=== PATIENT | male | born 2000 | race Caucasian/White ===

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

== ENCOUNTER 2022-06-19 12:04 | Emergency (ER) | payer OTHER ==
[~2022-06-19] VITALS: Ht 172.7 cm; Wt 99.8 kg
== END 2022-06-19 15:13 | disposition home or self-care (01) ==
LOC: ED 12:04
DX: R31.0 Gross hematuria (principal); J45.909 Unspecified asthma, uncomplicated
CPT/HCPCS: 74178; 80053; 81001; 85002; 85025; 85610; 85730; 99284-25; Q9967

== ENCOUNTER 2025-04-09 17:01 | Emergency (ER) | payer OTHER ==
[~2025-04-09] VITALS: Ht 172.7 cm; Wt 121.0 kg
[2025-04-09] MEDS ORDERED: HYDROCODON-ACE1 EA10 PO (18:28)
[2025-04-09 18:31] VITALS: BP 121/67
== END 2025-04-09 18:30 | disposition home or self-care (01) ==
LOC: ED 17:01
DX: S52.124A Nondisplaced fracture of head of right radius, initial encounter for closed fracture (principal); S63.501A Unspecified sprain of right wrist, initial encounter; V00.131A Fall from skateboard, initial encounter; Y93.51 Activity, roller skating (inline) and skateboarding; J45.909 Unspecified asthma, uncomplicated
CPT/HCPCS: 73080; 73110; 99283

== ENCOUNTER 2025-04-20 14:53 | Inpatient (IN) | payer OTHER ==
[~2025-04-20] VITALS: Ht 172.7 cm; Wt 120.9 kg
[~2025-04-20 14:53] MED LIST changes: +HYDROCODON-ACE1 EA10 PO
--- OUTSIDE RECORDS SUMMARY | 2025-04-20 15:00 | XMS ---
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 E.D. VISIT COUNT (12 MO.) 2 [facility] TOTAL 2 NOTE: Visits indicate total known visits. ED/UCC VISIT TRACKING (12 MO.) 04/20/2025 14:53 [facility] TYPE: Emergency COMPLAINT: - LT LEG INJURY 04/09/2025 17:02 [facility] TYPE: Emergency COMPLAINT: - RT WRIST/ELBOW INJURY DIAGNOSES: - Activity, roller skating (inline) and skateboarding - Fall from skateboard, initial encounter - Nondisplaced fracture of head of right radius, initial encounter for closed fracture - Pain in right wrist - Unspecified asthma, uncomplicated - Unspecified sprain of right wrist, initial encounter INPATIENT VISIT TRACKING (12 MO.) No inpatient visits to display in this time frame [email or web address]
[2025-04-20] MEDS ORDERED: HYDROmorphone HCL 1 MG/ML SYR IV ONE ×3 (15:15→17:15)
[2025-04-20] MEDS ORDERED: TRANEXAMIC ACID IN NACL,ISO-OS 1,000 MG/100 ML PIGGYBACK IV ONE ×2 (15:15→15:30)
[2025-04-20 15:16] LABS: BASOPHILS 0.4 % (0.2-1.2); EOSINOPHILS 4.4 % (0.8-7.0); LYMPHOCYTES 35.8 % (21.8-53.1); MCH 28.3 PG (25.7-32.2); MCHC 32.6 g/dL (32.3-36.5); MCV 86.9 fL (79.0-92.2); MONOCYTES 6.1 % (5.3-12.2); NEUTROPHILS 53.1 % (34.0-67.9); RBC 5.05 M/uL (4.63-6.08)
[2025-04-20] MEDS ORDERED: SODIUM CHLORIDE 0.9% 1,000 ML IV ONE (15:30)
[2025-04-20 15:36] LABS: ALCOHOL, MEDICAL <3 ng/dL (<3); ALT (SGPT) 30 U/L (14-59); AST (SGOT) 14 U/L (15-37); GLOMERULAR FILTRATION RATE,EST 126 mL/min (>60); PROTEIN, TOTAL 7.9 g/dL (6.4-8.2); UREA NITROGEN 12 mg/dL (7-18)
[2025-04-20 15:57] LABS: ABO O; ANTIBODY SCREEN NEGATIVE; RH POSITIVE
[2025-04-20] MEDS ORDERED: LIDOCAINE/RACEPINEP/TETRACAINE 3 ML SYR TOP ONE (16:45)
[2025-04-20] MEDS ORDERED: CEFAZOLIN SODIUM 2 GM/20 ML SYR IV ONE ×2 (17:30)
[2025-04-20 18:20] LABS: AMPHETAMINES, URINE NEGATIVE (NEGATIVE); BARBITURATES, URINE NEGATIVE (NEGATIVE); BENZODIAZEPINE, URINE NEGATIVE (NEGATIVE); CANNABINOID, URINE NEGATIVE (NEGATIVE); COCAINE, URINE NEGATIVE (NEGATIVE); ECSTASY, URINE NEGATIVE (NEGATIVE); FENTANYL, URINE NEGATIVE (NEGATIVE); METHADONE, URINE NEGATIVE (NEGATIVE); OPIATES, URINE POSITIVE (NEGATIVE); OXYCODONE, URINE NEGATIVE (NEGATIVE); PHENCYCLIDINE, URINE NEGATIVE (NEGATIVE)
[2025-04-20] MEDS ORDERED: LACTATED RINGER'S 1,000 ML IV SCH (19:15)
[2025-04-20] MEDS ORDERED: HYDROmorphone HCL 1 MG/ML SYR IV PRN (19:15)
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
[2025-04-20 19:58] VITALS: BP 114/57
[2025-04-20 23:38] VITALS: BP 115/62
[2025-04-21 04:21] VITALS: BP 108/58
[2025-04-21 05:42] LABS: BASOPHILS 0.5 % (0.2-1.2); EOSINOPHILS 5.0 % (0.8-7.0); LYMPHOCYTES 33.5 % (21.8-53.1); MCH 28.3 PG (25.7-32.2); MCHC 32.2 g/dL (32.3-36.5); MCV 88.0 fL (79.0-92.2); MONOCYTES 6.4 % (5.3-12.2); NEUTROPHILS 54.2 % (34.0-67.9); RBC 4.49 M/uL (4.63-6.08)
--- NOTE | 2025-04-21 07:40 | NUR ---
REPORT RECEIVED FROM BARMAN. PT RESTING IN BED, FIANCE AT BEDSIDE. UPDATED PT ON PLAN OF CARE FOR TODAY. PT REPORTS NEEDING TO USE BATHROOM, ASSISTED TO BATHROOM VIA STAND BY ASSIST. PT VOIDED APPROX 800 OUT. PT NOW BACK IN BED. PT REPORTS PAIN 8/10 AFTER MOVEMENT, PRN PAIN MEDICATION GIVEN. CALL LIGHT IN REACH, DENIES FURTHER NEEDS
[2025-04-21 08:04] VITALS: BP 126/75
--- NOTE | 2025-04-21 08:30 | NUR ---
INTO ROOM FOR CHLOREHEXIDINE WIPE. PT WANTING TO DO HIMSELF WITH ASSISTANCE FROM [facility]. PROVIDED PT WITH CLEAN GOWN AND SAH BAG TO PLACE ALL CLOTHING ITEMS AND JEWELRY IN. ALL QUESTIONS ANSWERED
--- NOTE | 2025-04-21 09:00 | NUR ---
PT READY FOR SURGERY AFTER WIPE DOWN. SCD'S PLACED ON NON-AFFECTED LEG. IVF CONTINUING PER ORDER. REPORTS PAIN IS TOLERABLE AT THIS TIME. CALL LIGHT IN REACH, FIANCE AT BEDSIDE
--- NOTE | 2025-04-21 09:11 | NUR ---
ALERT AND ORIENTED, IN BED. STATES HE LIVES IN APARTMENT. NO DME AT HOME. DOES NOT DRIVE. HAS NO DIFFICULTY PAYING FOR UTILTIES, FOOD OR MEDICATIONS. PLANS TO GO HOME WHEN MEDICALLY READY. DOES NOT BELIEVE HE WILL NEED ANY AMBULATORY DEVICES FOR MOBILITY.
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
--- NOTE | 2025-04-21 10:00 | NUR ---
medications reconciled
--- NOTE | 2025-04-21 10:03 | NUR ---
PT RESTING IN BED, WATCHING TV. DENIES NEEDS AT THIS TIME. DRESSING IN PLACE ON LEG, DRY AND INTACT
--- NOTE | 2025-04-21 11:30 | NUR ---
PT RESTING IN BED, WATCHING TV, FAMILY AT BEDSIDE. REPORTS PAIN IS TOLERABLE AT THIS TIME. DENIES FURTHER NEEDS. SCD REMAINS IN PLACE. CALL LIGHT IN REACH OF PT
--- NOTE | 2025-04-21 12:30 | NUR ---
PT SLEEPING IN BED, RESPIRATIONS EVEN. IVF CONTINUING PER ORDER. CALL LIGHT IN REACH
[2025-04-21 12:32] VITALS: BP 117/61
--- NOTE | 2025-04-21 13:10 | NUR ---
PT RESTING WITH EYES CLOSED, THIS RN AWAKENS PATIENT TO INSTRUCT PATIENT TO COMPLETE CHLORAHEXADINE WIPE DOWN FOR SURGERY. PT AGREES. NO OTHER NEEDS, PT WILL CALL IF HE NEEDS FURTHER ASSISTANCE.
--- NOTE | 2025-04-21 13:44 | NUR ---
PT TO DAY SURGERY WITH SETH CUEVAS. FAMILY AT BEDSIDE
[2025-04-21] MEDS ORDERED: CEFAZOLIN SODIUM 2 GM/20 ML SYR IV SCH ×2 (14:00)
[2025-04-21] MEDS ORDERED: DEXAMETHASONE SOD PHOS 4 MG/ML VIAL ONE (14:26)
[2025-04-21] MEDS ORDERED: KETOROLAC TROMETHAMINE 30 MG/ML VIAL ONE (14:26)
[2025-04-21] MEDS ORDERED: fentaNYL citrate 100 MCG/2 ML VIAL ONE (14:26)
[2025-04-21] MEDS ORDERED: LIDOCAINE HCL 2% 5 ML SDV ONE (14:26)
--- NOTE | 2025-04-21 15:23 | NUR ---
04/21/25 1523 Riana Stevens 1514PT TO PACU SLEEPY BUT AROUSABLE, ON ROOM AIR, BREATHS REG AND UNLABORED.
--- NOTE | 2025-04-21 15:45 | NUR ---
PT RETURNED TO CCU ROOM. REPORT RECEIVED FROM PACU, RN. PT A&O, MANAGING AIRWAY INDEPENDENTLY, VITALS STABLE. LEFT EXTREMITY HAS DRESSING IN PLACE, DRY AND INTACT. CMS INTACT IN LEG. SCD ON NON-AFFECTED EXTREMITY. IVF STARTED BACK PER ORDER. PACU, RN HANDED OVER PACKING FORM AND PACKING WRISTBAND ON, PLACED IN CHART. FAMILY BACK AT BEDSIDE. PT REPORTS PAIN TOLERABLE AT THIS TIME, 4/10 IN LEFT LEG.
--- NOTE | 2025-04-21 15:48 | NUR ---
patient takes no medications
[2025-04-21 15:51] VITALS: BP 127/62
--- NOTE | 2025-04-21 16:21 | NUR ---
PHONE CALL TO OR CHARGE NURSE ASKING FOR TRANSFER BACK ORDERS AND SHE WILL TALK WITH . 17:10 OR CHARGE CALLED BACK AND WILL NOT PROVIDE ORDERS AT THIS TIME.
--- NOTE | 2025-04-21 16:51 | NUR ---
PT RESTING IN BED, MULTIPLE FAMILY MEMBERS AT BEDSIDE. PT REPORTS PAIN 5/10, TOLERABLE AT THIS TIME. DRESSING INTACT, DRY. PT DENIES FURTHER NEEDS, ASKING ABOUT PLAN. INFORMED THAT WAITING ON ADDITIONAL ORDERS. PT UNDERSTANDING. CALL LIGHT IN REACH
[2025-04-21 16:59] VITALS: BP 116/72
--- NOTE | 2025-04-21 17:07 | NUR ---
PT VOIDED INTO URINAL INDEPENDENTLY, 300 MLS OUT.
[2025-04-21 18:00] VITALS: BP 118/66
--- NOTE | 2025-04-21 18:10 | NUR ---
DR JAIME AT BEDSIDE. PT OK TO EAT. DC INSTRUCTIONS REVIEWED WITH PT
[2025-04-21] MEDS ORDERED: HYDROCODONE/ACETA 5/325 TAB ONE (18:18)
--- NOTE | 2025-04-21 18:22 | NUR ---
PT ATE CHEESEBURGER AND FRIES. DENIES ANY NAUSEA, TOLERATED WELL.
--- NOTE | 2025-04-21 18:25 | NUR ---
DR YENI SANCHEZ IN THE DEPARTMENT, HE STATED HE PUT ORDERS IN THE COMPUTOR BUT WHEN GOSPEL SINGER WENT TO SHOW HIM THE COMPUTOR SYSTEM WENT DOWN. DR UNABLE TO ENTER ODERS SO WE WENT TO PAPER ORDERS. PT IS TO BE DISCHARGE TO HOME. ALL PAPERWORK COMPLETED FOR PT AND GIRFREIND GIVEN HARD COPY OF RX'S FOR PT. PHARMACY CALLED [facility] TO HELP THEM GET THIS RX FILLED FOR PT.
--- NOTE | 2025-04-21 18:35 | NUR ---
PT DISCHARGED AT THIS TIME. ALL INSTRUCTIONS REVIEWED AND QUESTIONS ANSWERED. PT AWARE OF FOLLOW UP APPT ON SATURDAY AND NEED TO MAKE APPT FOR FOLLOW UP IN X2 WEEKS. IV IN RAC AND IV IN LEFT HAND DC'D WNL. ASSISTED PT OUT IN WHEELCHAIR WITH FIANCE.
== END 2025-04-21 18:35 | disposition home or self-care (01) | DRG 572 ==
LOC: ED 14:53 → CCU 19:29
PROVIDERS: Emergency Medicine; ADMIT Surgery; ATTEND Surgery
PROC: 0JBP0ZZ Excision of Left Lower Leg Subcutaneous Tissue and Fascia, Open Approach (ICD-10-PCS; principal; 2025-04-21 12:15)
DX: S81.032A Puncture wound without foreign body, left knee, initial encounter (principal); J45.909 Unspecified asthma, uncomplicated; Z79.891 Long term (current) use of opiate analgesic; W34.09XA Accidental discharge from other specified firearms, initial encounter
CPT/HCPCS: 36415; 73560; 73706; 80053; 80307; 85025; 86850; 86900; 86901; G0480; J0690; J1100; J1171; J1885; J2003; J2405; J2704; J3010; J7030; J7121; Q9967

== ENCOUNTER 2025-06-09 09:03 | Day surgery (SDC) | payer OTHER ==
[2025-06-09 09:20] VITALS: BP 148/61
[2025-06-09] MEDS ORDERED: HYDROCODON-ACE1 EAC8 PO (09:22)
[2025-06-09] MEDS ORDERED: LEVOFLOXACIN500 MG PO (09:22)
[2025-06-09] MEDS ORDERED: fentaNYL citrate 100 MCG/2 ML VIAL ONE (10:25)
[2025-06-09] MEDS ORDERED: MIDAZOLAM HCL 2 MG/2 ML VIAL ONE (10:25)
[2025-06-09] MEDS ORDERED: KETOROLAC TROMETHAMINE 30 MG/ML VIAL ONE (10:26)
[2025-06-09] MEDS ORDERED: DEXAMETHASONE SOD PHOS 4 MG/ML VIAL ONE (10:26)
[2025-06-09 12:55] VITALS: BP 116/58
--- NOTE | 2025-06-09 13:18 | NUR ---
06/09/25 1318 Lupe Brooks 1103- PT PRESENTS TO PACU, SEMI FERREIRA POSITION. OPA IN PLACE, BREATHING EVEN AND NON LABORED, WITH 6L O2 PER MASK. LR INFUSING TO RH IV. ABD SOFT, NON DISTENDED. DRESSING TO LEFT KNEE, CDI, PULSES INTACT TO LEFT FOOT. ALL MONITORS IN PLACE. 1106- PT WAKES TO VERBAL STIMULI, FOLLOWS INSTRUCTION TO REMOVE OPA, O2 LEFT IN PLACE. REORIENTED TO TIME AND PLACE. DENIES PAIN OR NAUSEA. PT RESTING INTERMITTENTLY. 1113- PT MOVED TO ROOM AIR, RESTING AND WAKES EASILY TO VERBAL STIMULI. PT WILL WAKE AND CONVERSE WITH STAFF, NO COMPLAINTS JUST FEELS VERY TIRED LIKE HE WAS "JUST WOKE UP FROM A COUPLE MINUTE NAP". 1120- HOB ELEVATED, D/C INSTRUCTIONS GIVEN TO PT. PT VERBALIZED UNDERSTANDING. 1131- PT UP TO SIDE OF BED, TOLERATING WELL. PLAN TO GET DRESSED. FIANCE CALLED FOR A RIDE HOME. 1140- PT TRANSFERRED TO WHEELCHAIR WITH STEADY GAIT. NO SIGNS OF DISTRESS. SALINE LOCK REMOVED, TIP INTACT, DRESSING APPLIED. PT TAKEN OUT TO CAR WITH ALL BELONGINGS.
== END 2025-06-09 11:40 | disposition home or self-care (01) ==
LOC: DS 09:03
PROVIDERS: ATTEND Surgery
PROC: 0HBLXZZ Excision of Left Lower Leg Skin, External Approach (ICD-10-PCS; principal; 2025-06-09 11:00)
DX: S81.032A Puncture wound without foreign body, left knee, initial encounter (principal); W32.0XXA Accidental handgun discharge, initial encounter; J45.909 Unspecified asthma, uncomplicated; Z79.899 Other long term (current) drug therapy
CPT/HCPCS: 00400; J1100; J1885; J2250; J2405; J2704; J3010